=== PATIENT | female | born 1930 | race African-American/Black ===

== ENCOUNTER 2019-04-10 20:31 | Emergency (ER) | payer OTHER ==
[~2019-04-10] VITALS: Ht 144.8 cm; Wt 45.4 kg
[2019-04-10 21:55] LABS: ABSOLUTE NEUTROPHILS 3.1 thou/uL (1.4-8.2); BASOPHILS 1.4 % (0.0-2.0); EOSINOPHILS 2.8 % (0.0-3.0); HEMATOCRIT 36.5 % (37.0-47.0); HEMOGLOBIN 11.8 gm/dL (12.0-15.0); LYMPHOCYTES 36.1 % (24.0-44.0); MCH 27.1 pg (26.0-34.0); MCHC 32.3 g/dL (28.0-37.0); MONOCYTES 10.9 % (1.0-8.0); PLATELET COUNT 199 thou/uL (150-400); POLYS 48.8 % (36.0-66.0); RBC 4.35 mil/uL (4.20-5.00); WBC 6.4 thou/uL (4.0-11.0)
[2019-04-10 22:10] LABS: ANION GAP 10 mmol/L (7-16); BUN 11 mg/dL (7-18); CALCIUM 9.3 mg/dL (8.5-10.1); CHLORIDE 106 mmol/L (98-107); CO2 29 mmol/L (21-32); CREATININE 0.9 mg/dL (0.6-1.0); GLUCOSE 190 mg/dL (74-106); POTASSIUM 4.3 mmol/L (3.5-5.1); SODIUM 145 mmol/L (136-145)
[2019-04-10 22:12] LABS: APTT 19.5 Seconds (24.5-32.8); PROTIME 9.7 Seconds (9.3-11.4)
[2019-04-10 22:20] LABS: ALBUMIN 2.8 g/dL (3.4-5.0); SGOT 20 U/L (15-37); SGPT 14 U/L (30-65); TOTAL BILIRUBIN 0.2 mg/dL (<0.1-1.0); TOTAL PROTEIN 6.8 g/dL (6.4-8.2); TROPONIN-I <0.06 ng/mL (<0.06)
[2019-04-10 22:37] LABS: URINE BILIRUBIN NEGATIVE (Negative); URINE BLOOD TRACE (Negative); URINE CLARITY SL CLOUDY; URINE COLOR YELLOW; URINE GLUCOSE-RANDOM* NEGATIVE (Negative); URINE KETONES NEGATIVE (Negative); URINE LEUKOCYTES-REFLEX NEGATIVE (Negative); URINE NITRITE-REFLEX NEGATIVE (Negative); URINE PROTEIN (DIPSTICK) TRACE (Negative)
[2019-04-10 23:23] VITALS: BP 194/65
--- NOTE | 2019-04-11 08:12 | EKG ---
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[facility] : 1930 Requested By: Shai Mcgarry Order Number: [id number] MD: Deric Wills Measurements Intervals [place] Rate: 71 P: 49 [place]: 146 QRS: 28 QRSD: 76 T: 55 QT: 386 QTc: 420 Interpretive Statements Sinus rhythm Compared to ECG 02/07/2009 15:10:21 T-wave abnormality no longer present Electronically Signed On 04-11-2019 8:12:13 CDT by Deric Wills [email or web address] ��������������������������������������������� <ELECTRONICALLY SIGNED> ���������������������������������������� By: Deric Wills MD ��������������������������������������������� 04/11/19811 16 16 Deric Wills MD /EUGENIO
== END 2019-04-10 23:24 | disposition home or self-care (01) ==
LOC: ER 20:31
PROVIDERS: Emergency Medicine
DX: G30.9 Alzheimer's disease, unspecified (principal); F02.80 Dementia in other diseases classified elsewhere, unspecified severity, without behavioral disturbance, psychotic disturbance, mood disturbance, and anxiety; R48.2 Apraxia

== ENCOUNTER 2021-03-17 10:26 | Inpatient (IN) | payer OTHER ==
[~2021-03-17] VITALS: Ht 167.6 cm; Wt 55.8 kg
[2021-03-17 10:27] VITALS: BP 197/58
[2021-03-17 10:50] LABS: URINE BILIRUBIN NEGATIVE (Negative); URINE BLOOD 3+ (Negative); URINE CLARITY CLEAR; URINE COLOR YELLOW; URINE GLUCOSE-RANDOM* TRACE (Negative); URINE KETONES 1+ (Negative); URINE LEUKOCYTES-REFLEX NEGATIVE (Negative); URINE NITRITE-REFLEX NEGATIVE (Negative); URINE PROTEIN (DIPSTICK) 3+ (Negative); URINE SPECIFIC GRAVITY >= 1.030 (1.005-1.035)
[2021-03-17 10:54] LABS: ABSOLUTE NEUTROPHILS 2.9 thou/uL (1.4-8.2); BASOPHILS 0.6 % (0.0-2.0); HEMATOCRIT 45.4 % (37.0-47.0); HEMOGLOBIN 14.6 gm/dL (12.0-15.0); LYMPHOCYTES 15.6 % (24.0-44.0); MCH 26.5 pg (26.0-34.0); MCHC 32.1 g/dL (28.0-37.0); MCV 82.5 fL (80.0-100.0); MONOCYTES 14.3 % (1.0-8.0); PLATELET COUNT 127 thou/uL (150-400); POLYS 69.5 % (36.0-66.0); RDW 15.2 % (10.5-14.5); WBC 4.1 thou/uL (4.0-11.0)
[2021-03-17 11:06] LABS: HYALINE CASTS 0-3 Few /LPF (None Seen); MUCUS 0-3 Light strn/LPF (None Seen); SQUAMOUS 0-3 Few /LPF (0-3)
[2021-03-17 11:08] LABS: AMORPHOUS URATES Few /LPF (None Seen); BACTERIA-REFLEX 1-9 Few /HPF (None Seen); URINE RBC 3-10 Few /HPF (NONE SEEN); URINE WBC-REFLEX 0-5 Rare /HPF (0-5)
[2021-03-17 11:13] LABS: CALCIUM 8.7 mg/dL (8.5-10.1); CREATININE 1.1 mg/dL (0.6-1.0); POTASSIUM 3.8 mmol/L (3.5-5.1)
[2021-03-17 11:18] LABS: APTT 27.1 Seconds (24.5-32.8); INR 0.96; PROTIME 10.5 Seconds (10.5-12.1)
[2021-03-17 11:28] LABS: ALBUMIN 2.9 g/dL (3.4-5.0); TOTAL BILIRUBIN 0.3 mg/dL (0.2-1.0); TOTAL PROTEIN 7.6 g/dL (6.4-8.2)
[2021-03-17 14:49] VITALS: BP 204/55
--- NOTE | 2021-03-17 15:00 | EKG ---
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
[2021-03-17 15:20] VITALS: BP 176/64
[2021-03-17 15:40] VITALS: BP 184/69
[2021-03-17 19:53] VITALS: BP 116/88
[2021-03-18] MEDS ORDERED: VITAMIN C500 M1 PO (00:11)
[2021-03-18] MEDS ORDERED: VITAMIN D375 MCG PO (00:12)
[2021-03-18] MEDS ORDERED: ZINC50 M2 PO (00:13)
[2021-03-18] MEDS ORDERED: CHILDREN'S ASPI81 M1 PO (00:14)
[2021-03-18] MEDS ORDERED: GLUCOTROL XL2.5 MG PO (00:14)
[2021-03-18] MEDS ORDERED: LEXAPRO20 MG PO (00:15)
[2021-03-18] MEDS ORDERED: LISINOPRIL20 MG PO (00:23)
[2021-03-18] MEDS ORDERED: RISPERDAL0.5 MG PO (00:24)
[2021-03-18 00:41] VITALS: BP 198/63
[2021-03-18 01:06] LABS: GLYCOHEMOGLOBIN (HGB A1C) 8.3 % (4.8-5.6)
[2021-03-18 03:40] VITALS: BP 118/81
[2021-03-18 07:06] LABS: HEMATOCRIT 42.1 % (37.0-47.0); HEMOGLOBIN 13.6 gm/dL (12.0-15.0); MCH 26.6 pg (26.0-34.0); MCHC 32.2 g/dL (28.0-37.0); MCV 82.5 fL (80.0-100.0); PLATELET COUNT 121 thou/uL (150-400); RBC 5.11 mil/uL (4.20-5.00); RDW 15.5 % (10.5-14.5); WBC 2.7 thou/uL (4.0-11.0)
[2021-03-18 07:23] LABS: D-DIMER 1.99 ug/mLFEU (0.19-0.50)
--- NOTE | 2021-03-18 07:27 | EKG ---
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 : 1930 Requested By: Shoshana Yanez Order Number: [id number] MD: Adiel Abreu Measurements Intervals [place] Rate: 103 P: 63 MD: 129 QRS: 53 QRSD: 78 T: 255 QT: 318 QTc: 416 Interpretive Statements Sinus tachycardia Repol abnrm, severe global ischemia (LM/MVD) Compared to ECG 03/17/2021 10:31:55 Early repolarization now present Possible ischemia now present Sinus rhythm no longer present ST (T wave) deviation no longer present Electronically Signed On 03-18-2021 7:27:38 CDT by Adiel Abreu [email or web address] <ELECTRONICALLY SIGNED> By: Adiel Abreu MD, FACC 03/18/21 0727 175 50 Adiel Abreu MD, [facility] /EPI
[2021-03-18 07:38] LABS: ALBUMIN 2.2 g/dL (3.4-5.0); ANION GAP 12 mmol/L (7-16); BUN 8 mg/dL (7-18); CALCIUM 7.3 mg/dL (8.5-10.1); CHLORIDE 108 mmol/L (98-107); CO2 26 mmol/L (21-32); CREATININE 0.8 mg/dL (0.6-1.0); DIRECT BILIRUBIN < 0.1 mg/dL (<0.1-0.2); GLUCOSE 270 mg/dL (74-106); MAGNESIUM 1.6 mg/dL (1.8-2.4); PHOSPHORUS 1.5 mg/dL (2.5-4.9); POTASSIUM 3.3 mmol/L (3.5-5.1); SGOT 63 U/L (15-37); SGPT 18 U/L (30-65); SODIUM 146 mmol/L (136-145); TOTAL BILIRUBIN 0.2 mg/dL (0.2-1.0); TOTAL PROTEIN 5.7 g/dL (6.4-8.2)
[2021-03-18 08:04] VITALS: BP 156/95
[2021-03-18 09:30] LABS: BE(vivo) 2.1 mmol/L (-2 to +3); HCO3 24.9 mmol/L (22.0-26.0); PCO2 33.1 mmHg (35.0-45.0); PO2 141.9 mmHg (80.0-100.0); pH 7.494 (7.360-7.450)
[2021-03-18 11:01] LABS: ABSOLUTE NEUTROPHILS 1.6 thou/uL (1.4-8.2)
[2021-03-18 11:02] LABS: ANISOCYTOSIS 1+
[2021-03-18 16:32] VITALS: BP 127/66
[2021-03-18 19:40] VITALS: BP 151/61
[2021-03-18 23:46] VITALS: BP 189/55
[2021-03-19 03:14] VITALS: BP 189/69
[2021-03-19 07:50] LABS: ABSOLUTE NEUTROPHILS 2.1 thou/uL (1.4-8.2); BASOPHILS 0.2 % (0.0-2.0); HEMATOCRIT 41.4 % (37.0-47.0); HEMOGLOBIN 13.2 gm/dL (12.0-15.0); MCH 26.1 pg (26.0-34.0); MCHC 31.9 g/dL (28.0-37.0); MCV 81.7 fL (80.0-100.0); MONOCYTES 14.1 % (1.0-8.0); PLATELET COUNT 122 thou/uL (150-400); POLYS 51.7 % (36.0-66.0); RBC 5.06 mil/uL (4.20-5.00); RDW 15.5 % (10.5-14.5)
[2021-03-19 07:55] VITALS: BP 181/57
[2021-03-19 08:08] LABS: ALBUMIN 2.2 g/dL (3.4-5.0); CALCIUM 7.3 mg/dL (8.5-10.1); CREATININE 0.9 mg/dL (0.6-1.0); DIRECT BILIRUBIN 0.2 mg/dL (<0.1-0.2); PHOSPHORUS 2.2 mg/dL (2.5-4.9); TOTAL BILIRUBIN 0.3 mg/dL (0.2-1.0); TOTAL PROTEIN 5.6 g/dL (6.4-8.2)
[2021-03-19 11:32] VITALS: BP 177/66
[2021-03-19 15:21] VITALS: BP 191/64
[2021-03-19 16:07] LABS: HIV ANTIBODY Non Reactive (Non Reactive)
[2021-03-19 19:21] VITALS: BP 109/80
[2021-03-20 03:49] VITALS: BP 93/78
[2021-03-20 07:15] LABS: ABSOLUTE NEUTROPHILS 3.7 thou/uL (1.4-8.2); BASOPHILS 0.2 % (0.0-2.0); HEMATOCRIT 40.8 % (37.0-47.0); HEMOGLOBIN 13.3 gm/dL (12.0-15.0); LYMPHOCYTES 16.6 % (24.0-44.0); MCH 26.4 pg (26.0-34.0); MCHC 32.5 g/dL (28.0-37.0); MCV 81.4 fL (80.0-100.0); MONOCYTES 10.1 % (1.0-8.0); PLATELET COUNT 112 thou/uL (150-400); POLYS 73.1 % (36.0-66.0); RBC 5.02 mil/uL (4.20-5.00); RDW 15.4 % (10.5-14.5); WBC 5.1 thou/uL (4.0-11.0)
[2021-03-20 07:35] LABS: ALBUMIN 2.1 g/dL (3.4-5.0); ANION GAP 11 mmol/L (7-16); BUN 12 mg/dL (7-18); CALCIUM 7.9 mg/dL (8.5-10.1); CHLORIDE 108 mmol/L (98-107); CO2 24 mmol/L (21-32); CREATININE 0.8 mg/dL (0.6-1.0); DIRECT BILIRUBIN < 0.1 mg/dL (<0.1-0.2); GLUCOSE 167 mg/dL (74-106); PHOSPHORUS 1.4 mg/dL (2.5-4.9); POTASSIUM 3.4 mmol/L (3.5-5.1); SGOT 64 U/L (15-37); SGPT 14 U/L (30-65); SODIUM 143 mmol/L (136-145); TOTAL BILIRUBIN 0.3 mg/dL (0.2-1.0)
[2021-03-20 07:43] VITALS: BP 130/103
[2021-03-20] MEDS ORDERED: PREDNISONE 20 M20 MG PO (09:27)
[2021-03-20] MEDS ORDERED: CATAPRES-TTS 31 EACH TRANSDERM (09:35)
[2021-03-20 11:32] VITALS: BP 145/59
[2021-03-20 14:01] VITALS: BP 145/59
== END 2021-03-20 16:37 | DRG 871 ==
LOC: ER 10:26 → 3W 13:41 → EROBS 13:41 → 3W 15:35
PROVIDERS: Emergency Medicine; Specialist; ADMIT Internal Medicine; ATTEND Internal Medicine
PROC: XW033E5 Introduction of Remdesivir Anti-infective into Peripheral Vein, Percutaneous Approach, New Technology Group 5 (ICD-10-PCS; principal; 2021-03-18)
DX: A41.2 Sepsis due to unspecified staphylococcus (principal); U07.1 COVID-19; J12.82 Pneumonia due to coronavirus disease 2019; G93.41 Metabolic encephalopathy; N17.9 Acute kidney failure, unspecified; M62.82 Rhabdomyolysis; J98.11 Atelectasis; E87.0 Hyperosmolality and hypernatremia; I16.0 Hypertensive urgency; F03.90 Unspecified dementia, unspecified severity, without behavioral disturbance, psychotic disturbance, mood disturbance, and anxiety; E86.0 Dehydration; E11.40 Type 2 diabetes mellitus with diabetic neuropathy, unspecified; F17.210 Nicotine dependence, cigarettes, uncomplicated; Z66 Do not resuscitate; Z90.49 Acquired absence of other specified parts of digestive tract; Z98.49 Cataract extraction status, unspecified eye
CPT/HCPCS: 10879